=== PATIENT | male | born 1975 | race Two or more races ===

== ENCOUNTER 2019-01-21 14:25 | Outpatient (CLI) | payer OTHER | END 2019-01-21 14:26 | disposition home or self-care (01) | LOC: SC 14:25 | PROVIDERS: ATTEND Internal Medicine Pulmonary Disease | DX: R06.83 Snoring (principal); R06.81 Apnea, not elsewhere classified; G47.8 Other sleep disorders; R41.89 Other symptoms and signs involving cognitive functions and awareness; G47.10 Hypersomnia, unspecified | CPT/HCPCS: 99203; 99212 ==

== ENCOUNTER 2019-02-19 19:26 | Outpatient (CLI) | payer OTHER | END 2019-02-19 19:27 | disposition home or self-care (01) | LOC: SC 19:26 | PROVIDERS: ATTEND Internal Medicine Pulmonary Disease | DX: R06.83 Snoring (principal) | CPT/HCPCS: 95810 ==

== ENCOUNTER 2019-04-11 09:10 | Outpatient (CLI) | payer OTHER | END 2019-04-11 09:11 | disposition home or self-care (01) | LOC: SC 09:10 | PROVIDERS: ATTEND Nurse Practitioner Family | DX: R06.83 Snoring (principal); R53.83 Other fatigue; G47.00 Insomnia, unspecified | CPT/HCPCS: 99212; 99215 ==

== ENCOUNTER 2019-05-22 09:13 | Outpatient (CLI) | payer OTHER ==
[2019-05-22 10:21] VITALS: BP 124/78
--- NOTE | 2019-05-22 10:21 | SLEEP CARE CONSULTATION ---
Information from patient questionnaire entered by Nataly Padilla. I have reviewed and concur with the information entered by Nataly Padilla. This document represents the service I personally performed and the decisions made by me, Cleo Kovacs, RN, MSN, [employer]. History of Present Illness Reason for CPAP/BiPAP follow up: other (6 week - insomnia) HPI additional information: Patient had negative sleep study but reports fatigue that could be related to insomnia. At last visit, he was advised to implement methods to reduce insomnia and complete a sleep diary. He turned face of clock so could not see when awakened in middle of night and set alarm. The out of bed time is about the same 5-5:15am He did not wake up as many times during night reducing wake times from 2-3 times to 0-1 times. Only once he had to write out concerns that were keeping him awake. This seemed to work in getting him back to sleep. He reports that he is not having insomnia as much in the middle of the night. He is still taking approximately 30-40 minutes to get to sleep and looks at clock when finally relaxed. He is getting about 6 hours of sleep with current schedule and feels somewhat refreshed instead of fatigued when awakened. Subjective Initial [place] Sleepiness Scale score: 19 Current [place] Sleepiness Scale score: 15 Allergies and Home Medications Known drug allergies: No Home medication list reviewed: Yes Allergy and home medication list: Zantac 1 tab bid prn Zyrtec 1 tab daily prn Review of Systems Review of systems same as previous: Yes Physical Exam Blood Pressure: 124/78 Cuff size: long Heart Rate: 89 O2 Saturation: 98 Weight (kg): 184 lb 9.6 oz Impression and Plan Insomnia, better with implementation of covering clock and not checking in middle of night and writing out concerns. It is still taking him about 30 minutes to fall asleep by looking at clock. He is now waking less often and waking more refreshed but still has daytime fatigue. Thus he is advised to evaluate his relaxing bedtime ritual and consider changing to something more relaxing for him such as implementing a 10 minute shower / bath etc. The goal to transition to sleep faster so he gets more sleep overall. But he is to leave bedroom if unable to sleep in about 20 minutes estimate ( again not looking at clock) so not to associated the bed with frustration to get to sleep. Once he is able to transition to sleep in less time , he can consider going to bed about 10-15 minutes earlier a week to strive for about 7-8 hours of sleep to see if more sleep time reduces his fatigue. He is to continue better sleep practices as discussed previously and referenced in How to Sleep Better pamphlet and his sleep should improve with time. If not, he is to contact this office for further evaluation. For his residual fatigue, he is to follow up with PCP for further evaluation of some other medical condition. 2. Snoring, patient reminded to follow up with PCP for ENT evaluation to see if treatment indicated. Plan: Continue regular sleep schedule Do not look at clock after in bed except when alarm work on bedtime ritual strive for more sleep once transition to sleep less time Follow up with PCP for further evaluation of fatigue and consideration of ENT evaluation for snoring. I spent 100% of this 30 minute visit face to face with the patient with greater than 50% of this was spent time counseling the patient and coordination of care.
== END 2019-05-22 09:14 | disposition home or self-care (01) ==
LOC: SC 09:13
PROVIDERS: ATTEND Nurse Practitioner Family
DX: G47.00 Insomnia, unspecified (principal); R06.83 Snoring
CPT/HCPCS: 99212; 99214

== ENCOUNTER 2020-10-28 15:42 | Outpatient (CLI) | payer OTHER ==
--- NOTE | 2020-10-28 18:12 | MRI Report ---
PROCEDURE: Cervical Spine W/O INDICATIONS: CERVICAL RADICULOPATHY TECHNIQUE: Noncontrast sagittal T1 spin echo and T2 fast spin echo, sagittal STIR, foraminal oblique sagittal T2 fast spin echo, and axial gradient echo or T2 fast spin echo through the cervical spine. COMPARISON: None. FINDINGS: Image quality: Motion artifact is noted. Alignment and Curvature: There is normal bony alignment. Bone Marrow: Marrow demonstrates normal overall signal. Spinal Cord: Visualized spinal cord has normal size and signal. No cerebellar tonsillar herniation. Paraspinous Soft Tissues: No paravertebral masses. Prevertebral soft tissues are normal in thicknes s. C2-C3: Normal in appearance. C3-C4: Normal in appearance. C4-C5: Normal in appearance. C5-C6: Moderate loss of disc height and signal are seen. Moderate disc bulge is seen at this level. Uncovertebral joint hypertrophy is seen at this level. Mild to moderate facet hypertrophy is seen . There is moderate to severe bilateral neuroforaminal narrowing seen. Mild to moderate central canal narrowing is seen. Associated mass effect is seen upon the ventral spinal cord. C6-C7: Mild loss of disc height and disc signal are seen. Moderate disc osteophyte complex is seen. Mild facet hypertrophy is seen. There is moderate right-sided and moderate to severe left-sided n euroforaminal narrowing seen. Mild central canal narrowing is seen. C7-T1: Normal in appearance. IMPRESSION: Lower cervical spine degenerative changes are seen, which are worst at the C5-C6 level. Reviewed by: Deric Sanchez MD on 10/28/2020 5:10 PM [place] Approved by: Deric Sanchez MD on 10/28/2020 5:10 PM [facility] Station ID: [id number]
== END 2020-10-28 15:43 | disposition home or self-care (01) ==
LOC: DI 15:42
PROVIDERS: ATTEND Student in an Organized Health Care Education/Training Program
DX: M47.812 Spondylosis without myelopathy or radiculopathy, cervical region (principal); M50.322 Other cervical disc degeneration at C5-C6 level; M48.02 Spinal stenosis, cervical region

== ENCOUNTER 2024-03-12 13:48 | Outpatient (CLI) | payer OTHER | END 2024-03-12 13:49 | disposition home or self-care (01) | LOC: CAM 13:48 | PROVIDERS: ATTEND Family Medicine | DX: R52 Pain, unspecified (principal) | CPT/HCPCS: 97810; 97811 ==

== ENCOUNTER 2024-03-19 10:50 | Outpatient (CLI) | payer OTHER | END 2024-03-19 10:51 | disposition home or self-care (01) | LOC: CAM 10:50 | PROVIDERS: ATTEND Family Medicine | DX: R52 Pain, unspecified (principal) | CPT/HCPCS: 97810; 97811 ==

== ENCOUNTER 2024-03-28 14:52 | Outpatient (CLI) | payer OTHER | END 2024-03-28 14:53 | disposition home or self-care (01) | LOC: CAM 14:52 | PROVIDERS: ATTEND Family Medicine | DX: R52 Pain, unspecified (principal) | CPT/HCPCS: 97810; 97811 ==

== ENCOUNTER 2024-04-11 14:56 | Outpatient (CLI) | payer OTHER | END 2024-04-11 14:57 | disposition home or self-care (01) | LOC: CAM 14:56 | PROVIDERS: ATTEND Family Medicine | DX: R52 Pain, unspecified (principal) | CPT/HCPCS: 97810; 97811 ==

== ENCOUNTER 2024-04-16 08:09 | Outpatient (CLI) | payer OTHER | END 2024-04-16 08:10 | disposition home or self-care (01) | LOC: CAM 08:09 | PROVIDERS: ATTEND Family Medicine | DX: R52 Pain, unspecified (principal) | CPT/HCPCS: 97810; 97811 ==

== ENCOUNTER 2024-04-23 14:07 | Outpatient (CLI) | payer OTHER | END 2024-04-23 14:08 | disposition home or self-care (01) | LOC: CAM 14:07 | PROVIDERS: ATTEND Family Medicine | DX: R52 Pain, unspecified (principal) | CPT/HCPCS: 97810; 97811 ==

== ENCOUNTER 2024-04-30 14:10 | Outpatient (CLI) | payer OTHER | END 2024-04-30 14:11 | disposition home or self-care (01) | LOC: CAM 14:10 | PROVIDERS: ATTEND Family Medicine | DX: R52 Pain, unspecified (principal) | CPT/HCPCS: 97810; 97811 ==

== ENCOUNTER 2024-05-21 14:05 | Outpatient (CLI) | payer OTHER | END 2024-05-21 14:06 | disposition home or self-care (01) | LOC: CAM 14:05 | PROVIDERS: ATTEND Family Medicine | DX: R52 Pain, unspecified (principal) | CPT/HCPCS: 97810; 97811 ==